=== PATIENT | female | born 1990 | race African-American/Black ===

== ENCOUNTER 2019-06-13 05:30 | Day surgery (SDC) | payer OTHER ==
[2019-06-11 15:04] LABS: BASOPHILS 0.7 % (0-2); EOSINOPHILS 0.8 % (0-7); HEMATOCRIT 38.5 % (36.0-48.0); HEMOGLOBIN 12.9 g/dL (12-16); IMMATURE GRANULOCYTES 0.2 % (0-5); LYMPHOCYTES 36.9 % (15-50); MCH 28.5 pg (26.0-34.0); MCHC 33.5 g/dL (31.0-37.0); MCV 85.2 fL (80.0-100.0); MEAN PLATELET VOLUME 10.4 fL (7.4-10.4); MONOCYTES 8.3 % (2-11); NEUTROPHILS 53.1 % (40-80); RBC 4.52 10x6/uL (4.00-5.40); RDW 14.6 % (11.5-14.5)
[2019-06-11 15:06] LABS: PLATELET COUNT 232 10x3/uL (130-400)
[~2019-06-13] VITALS: Ht 165.1 cm; Wt 73.9 kg
--- NOTE | ~2019-06-13 | OP ---
PATIENT NAME: MARIA ISABEL ARELLANO MEDICAL RECORD: [id number] :86 LOCATION:[facility] ADMISSION DATE: SURGEON: AMBER RODRÍGUEZ MD DATE OF OPERATION: 06/13/2019 PREOPERATIVE DIAGNOSIS: Retracted IUD string. POSTOPERATIVE DIAGNOSIS: Retracted IUD string. PROCEDURE: Hysteroscopy and removal of IUD. SURGEON: Amebr Rodríguez MD ANESTHESIA: General by LMA. INTRAVENOUS FLUIDS: Per anesthesia record. FINDINGS: 1. Grossly normal-appearing vagina and cervix. 2. Grossly normal appearing endocervical canal. SPECIMENS: IUD. COMPLICATIONS: None apparent. DESCRIPTION OF PROCEDURE: The patient was taken to the operating room where general anesthesia was achieved without difficulty. The patient was then prepped and draped in normal sterile fashion in the dorsal lithotomy position in the [facility]. After prep and drape, the bladder was drained of approximately 20 cc of clear yellow urine. At that point, a Graves speculum was placed into the vagina and the cervix was identified and grasped on its anterior lip with single-tooth tenaculum. A very superficial dilation of the cervix was performed approximately 5 mm, at which point, the hysteroscope was introduced gently into the cervical os and at approximately the level of the internal cervical os, the IUD string was noted and hysteroscopic grasper was used to grasp the IUD string. At this point, the hysteroscope was removed, removing the IUD as well. Good hemostasis was noted from the tenaculum site and the cervical os. The patient tolerated procedure well, transferred to postanesthesia recovery stable without incident. TRANSINT:[id number] Voice Confirmation ID: [id number] DOCUMENT ID: [id number] AMBER RODRÍGUEZ MD CC: [id number] DICTATION DATE: 06/13/19 0744 SPRAY DRY OPERATOR: 06/13/19 1044 [facility] 06/13/19 [facility] [address] [id number]
[~2019-06-13 05:30] MED LIST: FLINTSTONE1 TAB.CHEW; HYDROCODONE-APA1 TAB PO; IBUPROFEN600 MG PO; SYNTHROID25 MCG PO; ZOFRAN ODT4 MG/UDTAB PO
[2019-06-13 06:32] VITALS: BP 114/63; Ht 165.1 cm; Wt 73.9 kg
[2019-06-13 06:45] LABS: HCG URINE NEGATIVE (NEGATIVE)
--- NOTE | 2019-06-13 08:29 | NUR ---
0808-REC'D FROM RR. AWAKE AND ALERT,DENIES PAIN.VSS. REVIEWED DISCHARGE CRITERIA. CL IN EASY REACH. MOTHER AT BEDSIDE.
--- NOTE | 2019-06-13 08:30 | NUR ---
0825-FULL LIQUID TRAY TO ROOM.DENIES PAIN.
--- NOTE | 2019-06-13 09:17 | NUR ---
0847-DISCHARGE CRITERIA MET. REVIEWED POST OPERATIVE INSTRUCTIONS AND FOLLOW UP APPOINTMENT. REMOVED IV FROM RIGHT WRIST WITH CATH INTACT,DISPOSED INTO SHARPS. COVERED SITE WITH GUAZE,SECURED WITH MEDIPORE TAPE.
--- NOTE | 2019-06-13 09:18 | NUR ---
0905-ESCORTED OUT VIA W/C WITH MOTHER TO DRIVE HOME
== END 2019-06-13 09:05 | disposition home or self-care (01) ==
LOC: D.OPS 05:30 → D.PAN 07:30 → D.OPS 07:30
PROVIDERS: ATTEND Obstetrics & Gynecology
DX: Z97.5 Presence of (intrauterine) contraceptive device (principal)